=== PATIENT | male | born 1955 | race Caucasian/White ===

== ENCOUNTER 2023-06-18 06:05 | Day surgery (SDC) | payer MEDICARE, OTHER ==
[2023-06-18] MEDS ORDERED: fentaNYL 100 MCG/2 ML SDV IV ONE (06:06)
[2023-06-18] MEDS ORDERED: Propofol 200 MG/20 ML SDV IV ONE (06:06)
[2023-06-18] MEDS ORDERED: Midazolam 1 MG/ML 2 ML SDV IV ONE (06:06)
[2023-06-18] MEDS ORDERED: Sodium Chloride 0.9% 10 ML Syringe FLUSH PRN (06:15)
[2023-06-18] MEDS: Lactated Ringers 1,000 ML IV SCH (07:10)
[2023-06-18] MEDS: Simethicone Drops 40 MG/0.6 ML 30 ML Bottle ONE (07:23)
[2023-06-18 09:34] VITALS: BP 118/73; PULSE 80
== END 2023-06-18 09:43 | disposition home or self-care (01) ==
LOC: FB.SDS 06:05
PROVIDERS: ATTEND Surgery
DX: Z12.11 Encounter for screening for malignant neoplasm of colon (principal); D12.5 Benign neoplasm of sigmoid colon; I10 Essential (primary) hypertension; F32.A Depression, unspecified; E66.01 Morbid (severe) obesity due to excess calories; Z68.38 Body mass index [BMI] 38.0-38.9, adult; Z87.19 Personal history of other diseases of the digestive system; Z87.891 Personal history of nicotine dependence; Z95.0 Presence of cardiac pacemaker; Z79.01 Long term (current) use of anticoagulants; Z79.2 Long term (current) use of antibiotics; Z79.899 Other long term (current) drug therapy; Z79.82 Long term (current) use of aspirin; Z88.8 Allergy status to other drugs, medicaments and biological substances
CPT/HCPCS: 00811; 45380; 45385; 88305; A9270; J2250; J2704; J3010; J7120